=== PATIENT | female | born 1935 | race Caucasian/White ===

== ENCOUNTER → 2017-08-15 | Outpatient (CLI) | payer MEDICARE ==
[~2017-08-15] MED LIST: ASCORBIC ACID100 MG PO; CALCIUM 500 MG1 EACH PO; CARVEDILOL3.125 MG PO; CENTRUM SILVER1 EAC3 PO; DOCUSATE SODIU100 MG PO; FISH OIL 1,0001 EAC7 PO; FLONASE16 G1 BOTH NARES; FLUOROURACIL40 GM TP; LORAZEPAM0.5 MG PO; LOSARTAN POTASS50 MG PO; SIMVASTATIN20 MG PO; SYMBICORT60 INHALAT IH; VITAMIN D-3 401 EACH PO
== END | disposition home or self-care (01) ==
LOC: CDC 11:38
DX: Z01.810 Encounter for preprocedural cardiovascular examination (principal); I45.10 Unspecified right bundle-branch block
CPT/HCPCS: 93000